=== PATIENT | male | born 1955 | race Caucasian/White ===

== ENCOUNTER → 2018-11-18 | Outpatient (CLI) | payer BC, OTHER ==
--- NOTE | 2018-11-19 16:22 | 24HR ---
[address] [place] [address] [place] [address] 24 HR ELECTROCARDIOGRAM REPORT Name: TRUMAN FLORENTINO Jennie Room #: REG CL [facility]#: [id number] ������������� Admission: 11/18/18 ������������� Attend Phys: Yordy Swift MD Discharge: ��� ������������� ��� Date of : 59 Date of Service: 11/18/18 1420 �� Report #: [id number] �������� ��������������������������������������������[id number] THIS REPORT FOR: //name// [facility] Test Date: 2018-11-18 Test Time: 14:20:00 Pat Name: TRUMAN FLORENTINO Department: Room: Gender: Outreach Coordinator: : 1955 Requested By: Yordy Swift Order Number: [id number] Reading MD: Juanito Barnett Interpretive Statements 1. Underlying rhythm sinus mechanism 2. Ventricular tachycardia was identified consisting of 23 beats and occurred during sleep 3. No significant bradycardia arrhythmias described Electronically Signed On 11-19-2018 16:22:32 CDT by Juanito Barnett [email or web address] ��������������������������������������������� <ELECTRONICALLY SIGNED> ���������������������������������������� By: Juanito Barnett MD ��������������������������������������������� 11/19/18 1622 1420 1420 Juanito Barnett MD /EPI
== END ==
LOC: CV 11:17
DX: I95.9 Hypotension, unspecified (principal); R00.0 Tachycardia, unspecified